=== PATIENT | male | born 1975 | race Caucasian/White ===

== ENCOUNTER 2022-02-25 09:43 | Emergency (ER) | payer BC, OTHER, SELFPAY ==
[2022-02-25 09:54] VITALS: BP 174/78; PULSE 82; RESP 18; TEMP 37; O2SAT 97; BMI 41.1
[2022-02-25 09:58] VITALS: PULSE 78; O2SAT 95
--- NOTE | 2022-02-25 10:18 | ED_ITS ---
HPI - Wound/Laceration General: Chief Complaint: Wound/Laceration Stated Complaint: laceration on Left leg Time Seen by Provider: 02/25/22 09:44 Source: patient Mode of arrival: ambulatory Limitations: no limitations History of Present Illness: Patient is a nice 46-year-old male who presents to ED today with complaint of a left leg laceration that he sustained just prior to arrival after he was going down a flight of stairs and the stairs gave way causing him to fall. Patient's last tetanus was approximately 7 years ago. He has no bony tenderness and has been ambulatory on the extremities without difficulty since the fall. No other injuries sustained other than the abrasions and laceration to his anterior left lower leg. Onset (ago): hour(s) Extremity Location: Left: lower leg Place: home Patient tetanus UTD: No Context: accidental Associated symptoms: Reports no associated symptoms Review of Systems Musc: Reports: extremity pain (L LE); Denies: neck pain, back pain, extremity swelling, joint pain, joint swelling, joint redness or joint warmth Skin/Breast: Reports: other (abrasions/laceration to anterior L lower leg) Neuro: Denies: headache(s), numbness in extremities, weakness in extremities or sensory changes Physical Exam Const: COMMON NORMALS: no acute distress, no limitations and alert GENERAL APPEARANCE: cooperative Extremity: GENERAL: Yes normal exam except as noted LEFT LOWER EXTREMITY: Yes lower leg OTHER: several superficial abrasions to anterior left lower leg; he has one fairly superficial gaping laceration to anterior leg measuring approximately 3cm Neuro: COMMON NORMALS: moves all extremities, no focal motor deficits, no sensory deficits noted and gait normal SENSORIUM/ORIENTATION: Yes alert Procedures Laceration Laceration 1: Site: lower extremity Side (If applicable): left Size (cm): 3.0 Description: linear Depth: simple, single layer Local Anesthetic: lidocaine 1% Amount of anesthesia used (mL): 2.5 Pre-repair: wound explored and irrigated extensively Skin layer closed with: nylon Size (cm): 4-0 Number of sutures: 5 Technique: simple, interrupted Course Vital Signs: Vital signs: Vital Signs Temperature 98.6 F 02/25/22 09:54 Pulse Rate 82 02/25/22 09:54 Respiratory Rate 18 02/25/22 09:54 Blood Pressure 174/78 02/25/22 09:54 Pulse Oximetry 97 02/25/22 09:54 Oxygen Delivery Me thod 02/25/22 09:54 MDM - Wound/Laceration Medical Decision Making Wound copiously irrigated and repaired as documented. Tetanus updated. Wound care and infection precautions discussed. Discharge Plan Discharge Patient Disposition: Home Clinical Impression: Laceration of left leg Qualifiers: Encounter type: initial encounter Qualified Code(s): S81.812A - Laceration without foreign body, left lower leg, initial encounter Condition: Stable Discharge Orders: Discharge ED (Routine); Ordered 02/25/22 Ordered By: Emy Wallace Patient Instructions: Laceration (DC) Activity Restrictions/Additional Instructions: Keep wound/laceration clean with warm soap and water twice daily. Monitor for signs of infection such as redness, swelling, increased pain, or drainage. P chance seek medical re-evaluation if these occur. If you received sutures today these will need to be removed (unless you were told by the provider that they are absorbable). The provider should have discussed with you the length of time until removal-7 DAYS. You may return to the emergency department for this service. 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
[2022-02-25] MEDS: tetanus-dipt-pertussis 0.5 mL SDV IM (10:35)
[2022-02-25 10:50] VITALS: BP 140/105; PULSE 80; O2SAT 97
== END 2022-02-25 10:42 | disposition home or self-care (01) ==
PROVIDERS: Emergency Provider Physician Assistant
DX: S81.812A Laceration without foreign body, left lower leg, initial encounter (principal); W10.8XXA Fall (on) (from) other stairs and steps, initial encounter; Z23 Encounter for immunization
CPT/HCPCS: 12002; 90471; 90715; 99282

== ENCOUNTER 2024-10-21 16:29 | Emergency (ER) | payer OTHER, SELFPAY ==
[2024-10-21 16:31] VITALS: BP 133/88; PULSE 80; TEMP 36.7; O2SAT 94
--- NOTE | 2024-10-21 16:51 | W.ED.EXTPRO ---
HPI - Extremity Problem General: Chief complaint: Extremity Injury, Upper Stated complaint: L index finger lac Time Seen by Provider: 10/21/24 16:48 History of Present Illness: 49-year-old male patient comes in today for injury to the left index finger. Patient states that he was using a table saw today when he pad of his finger. Patient has avulsed the pad of his finger and has a laceration extending into the middle phalanx. Patient cannot remember his last tetanus and is also concerned for infection. Patient lives near [place] and wants to follow-up with orthopedist in [place]. Patient has range of motion of the finger. Related Data Previous Rx's ?Medication ?Instructions ?Recorded amoxicillin 875 mg-potassium 1 tab PO BID #20 tabs 10/21/24 clavulanate 125 mg tablet hydrocodone 5 mg-acetaminophen 325 1 tab PO Q6H PRN pain #10 tabs 10/21/24 mg tablet Allergies Allergy/AdvReac Type Severity Reaction Status Date / Time No Known Allergies Allergy Verified 10/21/24 16:38 Review of Systems General: Reports: 10 or more systems reviewed and unremarkable except in HPI and below Physical Exam Const: COMMON NORMALS: alert HENMT: COMMON NORMALS: normocephalic HEAD & SCALP: normocephalic Neck/C-Spine: COMMON NORMALS: full ROM Resp: COMMON NORMALS: normal respiratory effort Cardio: COMMON NORMALS: regular rate and regular rhythm RATE: regular rate RHYTHM: regular rhythm GI: COMMON NORMALS: Soft to palpation PALPATION: Yes Soft to palpation Back/Pelvis: COMMON NORMALS: thoracic and lumbar spine normal to inspection Extremity: LEFT UPPER EXTREMITY: Yes hand & digits (Avulsion finger pad left index finger,) Neuro: SENSORIUM/ORIENTATION: Yes alert Skin: TRAUMA: laceration (Left index finger) avulsion Course Vital Signs: Vital signs: Vital Signs Temperature 98.0 F 10/21/24 16:31 Pulse Rate 79 10/21/24 17:59 Blood Pressure 115/77 10/21/24 17:59 Pulse Oximetry 96 10/21/24 17:59 Oxygen Delivery Me thod Room Air 10/21/24 16:31 MDM - Extremity (Nontraumatic) Medical Decision Making Patient comes in today for injury to the left index finger. On exam patient has an avulsion of the finger pad, minimal to no involvement of the fingernail, a laceration extending to the middle phalanx. Bleeding is controlled. Wound was cleaned and dressed with nonstick gauze. Differential diagnosis avulsion, laceration, fracture. Reviewed exam with patient with recommendation for treatment and follow-up with orthopedic surgeon and hand specialty. Patient wished to follow-up in [facility]. Patient was updated on his tetanus and started on antibiotics and wound was cleaned and dressed. XR interpretation done by ED provider, pending radiology final review Discharge Plan Discharge Patient Disposition: Home Clinical Impression: Avulsion of skin of finger Qualifiers: Encounter type: initial encounter Qualified Code(s): S61.209A - Unspecified open wound of unspecified finger without damage to nail, initial encounter Condition: Stable Prescriptions: New amoxicillin-pot clavulanate 875-125 mg tablet 1 tab PO BID Qty: 20 0RF hydrocodone-acetaminophen 5-325 mg tablet 1 tab PO Q6H PRN (Reason: pain) Qty: 10 0RF Rx Instructions: DX: finger avulsion Discharge Orders: Discharge ED (Routine); Ordered 10/21/24 Ordered By: Connor Henson Discharge Diet: Usual diet Discharge Activity: Increase activity as tolerated Patient Instructions: Finger Laceration (ED) Activity Restrictions/Additional Instructions: I recommend follow-up with hand surgeon in the morning for further evaluation and treatment. Take antibiotics as directed. Use Tylenol and ibuprofen to control pain. Use hydrocodone for severe pain. Return to ED for new concerns. 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
[2024-10-21] MEDS: ceFAZolin 1,000 MG in water for injection-sterile 2.5 ML 999 MG IM (17:03)
[2024-10-21] MEDS: tetanus-dipt-pertussis 0.5 mL SDV IM (17:03)
--- NOTE | 2024-10-21 17:08 | XRR_ITS ---
PROCEDURE INFORMATION: Exam: XR Left Hand Exam date and time: 10/21/2024 4:24 PM Age: 49 years old Clinical indication: Injury or trauma; Laceration; Injury details: PT arrives pov C/O lac to left index finger while using a table saw about an hour ago. PT has coban wrapped around finger. ; Additional info: Finger lac TECHNIQUE: Imaging protocol: Radiologic exam of the left hand. Views: 3 or more views. COMPARISON: No relevant prior studies available. FINDINGS: Bones/joints: Bandaging material obscures bony detail. Wedge-shaped bony defect involves the palmar surface of the proximal mid 2nd phalanx. No additional bony abnormality. Soft tissues: Diffuse 2nd digit soft tissue swelling. Laceration injury involves the palmar surface of the distal 2nd digit. No definitive radiopaque foreign body. XR/XR hand LT min 3V* [id number] IMPRESSION: 1. Wedge-shaped bony defect involving the palmar surface of the proximal mid 2nd phalanx. 2. Overlying bandages obscures detailed. Laceration injury involving the distal 2nd digit. No definitive radiopaque foreign body.
[2024-10-21 17:59] VITALS: BP 115/77; PULSE 79; O2SAT 96
== END 2024-10-21 17:45 | disposition home or self-care (01) ==
PROVIDERS: Emergency Provider Nurse Practitioner Family
DX: S61.201A Unspecified open wound of left index finger without damage to nail, initial encounter (principal); W27.0XXA Contact with workbench tool, initial encounter; Z23 Encounter for immunization
CPT/HCPCS: 73130; 90471; 90715; 96372; 99284; J0690